=== PATIENT | female | born 1995 | race Caucasian/White ===

== ENCOUNTER 2016-04-28 20:01 | Observation (INO) | payer MEDICAID ==
[~2016-04-28] VITALS: Ht 154.9 cm; Wt 75.0 kg
[~2016-04-28 20:01] MED LIST: CELEXA20 MG PO; PRENATAL 1+1)(P1 TAB PO
[2016-04-28 21:08] LABS: BILIRUBIN URINE NEGATIVE (NEGATIVE); BLOOD URINE NEGATIVE /UL (NEGATIVE); GLUCOSE URINE NEGATIVE (NEGATIVE); KETONE URINE NEGATIVE (NEGATIVE); LEUKOCYTES URINE 25 /UL (NEGATIVE); NITRITE URINE NEGATIVE (NEGATIVE); PROTEIN URINE NEGATIVE (NEGATIVE); SPEC GRAVITY URINE 1.025 (1.003-1.035); UROBILINOGEN URINE 1 mg/dL (NORMAL)
[2016-04-28 21:33] LABS: BASOPHIL # 0.1 K/uL (0.0-0.2); BASOPHIL % 0.5 %; EOSINOPHIL # 0.3 K/uL (0.0-0.5); EOSINOPHIL % 2.7 %; HEMATOCRIT 35.7 % (33.0-46.0); HEMOGLOBIN 11.8 g/dL (11.0-15.0); IMMATURE GRANULOCYTE # 0.2 K/uL (0.0-0.3); IMMATURE GRANULOCYTE % 1.8 %; LYMPHOCYTE # 2.1 K/uL (0.8-4.0); LYMPHOCYTE % 19.5 %; MCH 30.4 pg (27.0-34.0); MCHC 33.1 gm/dL (32.0-36.5); MONOCYTE # 0.9 K/uL (0.0-1.0); MPV 11.3 fl (9.4-12.4); NEUTROPHIL # (ANC) 7.3 K/uL (1.8-7.8); NEUTROPHIL % 67.5 %; NRBC % 0 /100WBC (0-0.00); PLATELET COUNT 255 K/uL (150-450); RBC 3.88 M/uL (3.50-5.00); RDW-CV 13.4 % (11.9-14.6); WBC 10.8 K/uL (4.0-11.0)
[2016-04-28 21:41] LABS: COLOR URINE YELLOW (YELLOW); TURBIDITY URINE 1+ (CLEAR)
[2016-04-28 21:42] LABS: AMORPHOUS URINE 2+ (NEGATIVE); BACTERIA URINE MODERATE (NEGATIVE); MUCUS URINE 2+ (NEGATIVE); WBC CLUMPS URINE FEW (NEGATIVE)
== END 2016-04-30 10:45 | disposition disaster alternative care site (69) ==
LOC: GOBS 20:01
PROVIDERS: ADMIT Obstetrics & Gynecology
DX: O47.03 False labor before 37 completed weeks of gestation, third trimester (principal); O99.343 Other mental disorders complicating pregnancy, third trimester; O99.353 Diseases of the nervous system complicating pregnancy, third trimester; Z3A.33 33 weeks gestation of pregnancy; Z79.899 Other long term (current) drug therapy
CPT/HCPCS: G0378; G0463; J0702; J7120

== ENCOUNTER 2016-05-02 21:27 | Observation (INO) | payer MEDICAID ==
[~2016-05-02] VITALS: Ht 154.9 cm; Wt 76.4 kg
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
== END 2016-05-02 22:40 | disposition disaster alternative care site (69) ==
LOC: GOBS 21:27
PROVIDERS: ADMIT Obstetrics & Gynecology
DX: O99.89 Other specified diseases and conditions complicating pregnancy, childbirth and the puerperium (principal); R10.9 Unspecified abdominal pain; O99.353 Diseases of the nervous system complicating pregnancy, third trimester; G40.909 Epilepsy, unspecified, not intractable, without status epilepticus; F43.10 Post-traumatic stress disorder, unspecified; H91.90 Unspecified hearing loss, unspecified ear; Z86.59 Personal history of other mental and behavioral disorders; Z91.410 Personal history of adult physical and sexual abuse; Z3A.34 34 weeks gestation of pregnancy
CPT/HCPCS: G0378; G0379; G0463

== ENCOUNTER 2016-05-19 00:04 | Observation (INO) | payer MEDICAID ==
[~2016-05-19] VITALS: Ht 154.9 cm; Wt 79.1 kg
== END 2016-05-19 02:23 | disposition disaster alternative care site (69) ==
LOC: GOBS 00:04
PROVIDERS: ADMIT Obstetrics & Gynecology
DX: O47.03 False labor before 37 completed weeks of gestation, third trimester (principal); Z3A.36 36 weeks gestation of pregnancy; Z88.0 Allergy status to penicillin
CPT/HCPCS: G0463

== ENCOUNTER 2016-05-30 22:34 | Observation (INO) | payer MEDICAID ==
[~2016-05-30] VITALS: Ht 154.9 cm; Wt 79.4 kg
== END 2016-05-31 02:00 | disposition disaster alternative care site (69) ==
LOC: GOBS 22:34
PROVIDERS: ADMIT Obstetrics & Gynecology
DX: Z34.03 Encounter for supervision of normal first pregnancy, third trimester (principal); Z3A.38 38 weeks gestation of pregnancy
CPT/HCPCS: G0463

== ENCOUNTER 2016-06-10 06:49 | Inpatient (IN) | payer MEDICAID ==
[~2016-06-10] VITALS: Ht 154.9 cm; Wt 80.9 kg
--- NOTE | ~2016-06-10 | OR ---
PATIENT'S NAME: KUSH [facility] AGE: 21 Y [address] ROOM: [place] [address] LOCATION: [facility] ADMIT DATE: 06/10/2016 OR/Procedure Report DISCHARGE DATE: FAMILY PHYSICIAN: Kris Marie MD ATTENDING PHYSICIAN: FAIZA CABAN SURGEON: Faiza Caban MD CHILD STUDY TEAM DIRECTOR: None. DATE OF PROCEDURE: 06/10/2016 PROCEDURE PERFORMED: Spontaneous vaginal delivery over an intact perineum. PREDELIVERY DIAGNOSES: 1. Intrauterine at 39 weeks and 4 days. 2. Developmental delays. 3. Hearing loss. 4. The patient with history of seizures, not currently on medications. POSTDELIVERY DIAGNOSES: 1. Intrauterine at 39 weeks and 4 days. 2. Developmental delays. 3. Hearing loss. 4. The patient with history of seizures, not currently on medications. ESTIMATED BLOOD LOSS: 300 mL. ANTIBIOTICS: None indicated. FINDINGS: Viable female infant with weight of 7 pounds, 9 ounces and scores of 8 and 8. Intact placenta with 3-vessel cord. First-degree perineal laceration repaired per routine. COMPLICATIONS: None. DISPOSITION: The patient is stable and remained in care. INDICATION FOR THE PROCEDURE: The patient is a 21-year-old, G1, P0, who presented on June 10, 2016 for an elective induction of labor at term as she was favorable. Cervix was 2-3 cm dilated on admission. AROM was performed with findings of clear fluid and the patient was started on Pitocin. She progressed normally through labor and was found to be complete and began expulsive efforts. DESCRIPTION OF THE PROCEDURE: The patient was in dorsal lithotomy position in [facility]. With expulsive efforts, the fetus crowned and delivered in the SHANE presentation. head was allowed to restitute. No nuchal cord was noted. [facility] AGE: 21 Y [address] ROOM: [place] [address] LOCATION: [facility] ADMIT DATE: 06/10/2016 OR/Procedure Report DISCHARGE DATE: FAMILY PHYSICIAN: Kris Marie MD ATTENDING PHYSICIAN: FAIZA CABAN With gentle downward traction and then upward traction, the shoulders were delivered followed by the remainder of the body. was noted to be female and was vigorous and was placed on the mother's chest. Cord was clamped and cut. Cord blood was obtained and IV Pitocin was started per protocol. Gentle downward traction was placed on the cord and the placenta delivered spontaneously and intact. Cervix, vagina, and perineum were inspected for lacerations with findings of a first-degree perineal laceration, which was repaired per routine with 3-0 Vicryl and was hemostatic. All needle, sponge, and instrument counts were noted to be correct x2. The patient remained in her room for care. MD AMY BALLARD/janie /[id number] d: 06/11/16 0126 t: 06/11/16 0822, OPERATIVE SUMMARY
[2016-06-10 08:16] LABS: BASOPHIL # 0.1 K/uL (0.0-0.2); BASOPHIL % 0.8 %; EOSINOPHIL # 0.2 K/uL (0.0-0.5); EOSINOPHIL % 2.7 %; HEMATOCRIT 35.7 % (33.0-46.0); IMMATURE GRANULOCYTE # 0.1 K/uL (0.0-0.3); IMMATURE GRANULOCYTE % 0.8 %; LYMPHOCYTE # 1.5 K/uL (0.8-4.0); LYMPHOCYTE % 16.8 %; MCH 30.6 pg (27.0-34.0); MCHC 33.6 gm/dL (32.0-36.5); MCV 91.1 fl (83.0-98.0); MONOCYTE # 0.7 K/uL (0.0-1.0); MONOCYTE % 7.7 %; MPV 11.7 fl (9.4-12.4); NEUTROPHIL # (ANC) 6.2 K/uL (1.8-7.8); NEUTROPHIL % 71.2 %; NRBC % 0 /100WBC (0-0.00); PLATELET COUNT 223 K/uL (150-450); RBC 3.92 M/uL (3.50-5.00); RDW-CV 13.6 % (11.9-14.6); WBC 8.8 K/uL (4.0-11.0)
--- NOTE | 2016-06-11 05:29 | NUR ---
Last VS: T:98.1 P:102 R: 14 BP: 106/77 Pain ratin. Last pain med: None given Breasts: , Nipples: not assessed Fundus: firm, midline Lochia: small, rubra Epis/Perineum: 1st degree laceration. Edematous Voiding well: Voids well on own Significant event: VSS. tachycardic on occasion. Afebrile, bleeding WNL, denies pain, received no pain medication. Needs re-inforcement on bottle feeding.
[2016-06-11 05:34] LABS: BASOPHIL # 0.1 K/uL (0.0-0.2); BASOPHIL % 0.4 %; EOSINOPHIL # 0.1 K/uL (0.0-0.5); EOSINOPHIL % 0.9 %; HEMATOCRIT 34.3 % (33.0-46.0); HEMOGLOBIN 11.7 g/dL (11.0-15.0); IMMATURE GRANULOCYTE # 0.1 K/uL (0.0-0.3); IMMATURE GRANULOCYTE % 0.7 %; LYMPHOCYTE # 1.8 K/uL (0.8-4.0); LYMPHOCYTE % 12.6 %; MCH 30.7 pg (27.0-34.0); MCHC 34.1 gm/dL (32.0-36.5); MONOCYTE % 7.2 %; MPV 11.7 fl (9.4-12.4); NEUTROPHIL # (ANC) 11.2 K/uL (1.8-7.8); NEUTROPHIL % 78.2 %; NRBC % 0 /100WBC (0-0.00); PLATELET COUNT 205 K/uL (150-450); RBC 3.81 M/uL (3.50-5.00); RDW-CV 13.5 % (11.9-14.6); WBC 14.3 K/uL (4.0-11.0)
--- NOTE | 2016-06-12 04:48 | NUR ---
VSS, FUNDUS FIRM, AT UMBILICUS, SMALL FLOW. NO PAIN MEDS GIVEN THIS SHIFT. CERTIFICATE AND PATERNITY PAPERS AT BEDSIDE. VIDEOS WATCHED. HOME TODAY.
[2016-06-12] MEDS ORDERED: SURFAK240 MG PO (08:35)
[2016-06-12] MEDS ORDERED: MOTRIN800 MG PO (08:36)
[2016-06-12] MEDS ORDERED: NORCO 5-325 TA1 EACH PO (08:37)
--- NOTE | 2016-06-12 12:44 | NUR ---
Introduced self and care management services to Mary, father of baby (holding and feeding bottle to baby) and Mary's mom and dad at bedside. Lives in [place], father of baby will be involved in baby care and support to Mary. Mary's parents will be support to her as well. Has car seat, crib, diapers, formula. Denies concerns about going home on discharge or needing resources. I did give them the OB community resource list in case needed in the future. Going home today.
== END 2016-06-12 13:30 | disposition disaster alternative care site (69) | DRG 775 ==
LOC: GOBS 06:49 → GOBM 06:49 → GOBS 08:31
PROVIDERS: ADMIT Obstetrics & Gynecology
PROC: 0HQ9XZZ Repair Perineum Skin, External Approach (ICD-10-PCS; principal; 2016-06-10)
PROC: 10E0XZZ Delivery of Products of Conception, External Approach (ICD-10-PCS; principal; 2016-06-10)
PROC: 10907ZC Drainage of Amniotic Fluid, Therapeutic from Products of Conception, Via Natural or Artificial Opening (ICD-10-PCS; principal; 2016-06-10)
PROC: 3E033VJ Introduction of Other Hormone into Peripheral Vein, Percutaneous Approach (ICD-10-PCS; principal; 2016-06-10)
DX: O70.0 First degree perineal laceration during delivery (principal); H91.93 Unspecified hearing loss, bilateral; O75.89 Other specified complications of labor and delivery; R62.50 Unspecified lack of expected normal physiological development in childhood; Z86.69 Personal history of other diseases of the nervous system and sense organs; Z3A.39 39 weeks gestation of pregnancy; Z37.0 Single live birth
CPT/HCPCS: J2590; J3010; J7120